=== PATIENT | female | born 1980 | race Caucasian/White ===

== ENCOUNTER 2016-07-06 05:40 | Day surgery (SDC) | payer BC ==
[~2016-07-06] VITALS: Ht 162.6 cm; Wt 63.4 kg
[2016-07-06] VITALS (12 sets, daily range): BP systolic 97–122; BP diastolic 58–73; PULSE 58–85; RESP 12–20; TEMP 96.9–98.6; O2SAT 99–100; Ht 162.6 cm; Wt 63.4 kg
[~2016-07-06 05:40] MED LIST: LORA10TA62 PO; MULT-933 PO; VITA1TAB21 PO
[2016-07-06 06:09] LABS: BASOPHILS % (AUTO) 0.1 % (0-2); EOSINOPHILS # (AUTO) 0.2 T/MM3 (0-0.5); EOSINOPHILS % (AUTO) 2.6 % (0-4); HCT - HEMATOCRIT 38.7 % (36-46); HGB - HEMOGLOBIN 12.8 GM/DL (12-16); IMMATURE GRANULOCYTE # (AUTO) 0.01 T/MM3 (0.00-0.03); IMMATURE GRANULOCYTE % (AUTO) 0.1 % (0.0-0.5); LYMPHOCYTES # (AUTO) 3.3 T/MM3 (1-4.8); MEAN CORPUSCULAR HGB 31.3 UUG (26-34); MEAN CORPUSCULAR HGB CONC(MCHC 33.1 GM/DL (31-37); MEAN CORPUSCULAR VOLUME 94.6 UM3 (80-100); MEAN PLATELET VOLUME 10.5 UM3 (9.4-12.4); MONOCYTES # (AUTO) 0.3 T/MM3 (0-0.8); MONOCYTES % (AUTO) 3.4 % (0-9.0); NEUTROPHILS #(AUTO)-ABSOLUTE 3.5 T/MM3 (1.8-7.7); NEUTROPHILS % (AUTO) 48.8 % (33-66); RED BLOOD COUNT 4.09 M/MM3 (4.00-5.20); WBC - WHITE BLOOD COUNT 7.3 T/MM3 (4.5-11.0)
[2016-07-06 06:19] LABS: BLOOD, URINE 2+ (NEGATIVE); COLOR,URINE YELLOW (YELLOW); LEUKOCYTE ESTERASE ,URINE NEGATIVE (NEGATIVE); NITRITE,URINE NEGATIVE (NEGATIVE); UROBILINOGEN,URINE 0.2 EU/DL (NORMAL)
[2016-07-06 06:28] LABS: BACTERIA,URINE 4+ (NEGATIVE); WBC,URINE NONE SEEN /HPF (0-5)
--- NOTE | 2016-07-06 06:59 | ANESPREOP ---
Anesthesia Record Date and Time DATE: 07/06/16 TIME: 06:56 Proposed Surgical Procedure LAP TUBAL Allergies: Coded Allergies: No Known Drug Allergies (Verified Allergy, Unknown, 07/06/16) Ht/Wt/BMI Height: 5 ' 4.00 " Weight: 63.400 kg BMI: 24.0 kg/m2 Vital Signs Date Time Temp Pulse Resp B/P Pulse Ox O2 Delivery O2 Flow Rate FiO2 07/06/16 06:12 98.6 82 14 116/70 99 Room Air Medications Inpatient Medications Current Medications Medications (Trade) Dose Ordered Sig/Ciarra Start Time Stop Time Status Last Admin Dose Admin Lactated Ringer's (Lactated Ringers) 1,000 ml @ 125 mls/hr Q8H 07/06/16 07:00 07/06/16 06:25 125 MLS/HR Loratadine (Claritin) 10 Mg Tablet, 1 TAB PO DAILY, (Reported) Last Taken: on 07/05/16 0800 Multivitamin (Multi-Day Vitamins) 1 Each Tablet , 1 TAB PO DAILY, (Reported) Last Taken: on 07/05/16 0800 Vitamin B Complex (Vitamin B Complex) 1 Each Tablet, 1 TAB PO DAILY, (Reported) Last Taken: on 07/05/16 0800 Currently on Beta Sindy: No Medical/Surgical History Anesthesia PMH: Denies: *Angina, *Diabetes, *Hypertension, *OK, Anesthesia Reactions (NO AIRWAY ISSUES), Arthritis, CHF, Cancer, Clotting Problems, Deep Vein Thrombosis, Glaucoma, Malignant Hyperthermia, Renal Disease, Rheumatic Fever, Sleep Apnea, Thyroid Disease Smoking Status: Never smoker Use Chewing Tobacco?: No Substance Use Type: does not use Alcohol Intake: none Last Drink: hours (ago) (8) HX of Last Menstrual Period: JUNE 2016 Past Surgical History Orthopedic Surgeries: Abdominal Surgeries: Genitourinary Surgeries: Cardiac Surgeries: Endocrine Surgeries: Reproductive Surgeries: Yes - Neurological Surgeries: Ear Surgeries: Nose Surgeries: Throat Surgeries: Other Surgeries: Anesthesia Adverse Reactions: FOUND none Family Hx of Anesthesia Advers: none Hx of Motion Sickness: No Pertinent Findings Laboratory Tests 07/06/16 05:54 Test 07/06/16 05:54 Human Chorionic Gonadotropin, Qual Negative (NEGATIVE) Physical Exam Respiratory: Lungs clear Cardiovascular: FOUND Regular rate, rhythm Airway Assessment Mallampati Score: II TMD: 3 Fingerbreadths Neck Extension: Good Overall Assessment: No Airway Concerns ASA: 1 Plan Anesthesia Plan: GETA Discussion Discussed risks/options/alternatives of anesthesia and questions answered. Patient consents. Nursing pain assessment noted. Attestation Statement Prior to the delivery of any anesthetic medication, I examined the patient, developed the plan, obtained the patient's consent and discussed the risk and benefits of the procedure with the patient/guardian. CLIFFORD RODRIGUEZ BOTANY TECHNICIAN Jul 06, 2016 06:59
[2016-07-06] MEDS ORDERED: LR 1,000 ML IV SCH (07:00)
[2016-07-06] MEDS ORDERED: LIDOCAINE 1% (10mg/ml) 2ml SDV INJ ONE (07:00)
[2016-07-06] MEDS ORDERED: ONDANSETRON 4mg/2ml INJECTION ONE ×2 (07:10→08:52)
[2016-07-06] MEDS ORDERED: LIDOCAINE 2% (20mg/ml) 5ml PF SDV ONE ×2 (07:10→08:52)
[2016-07-06] MEDS ORDERED: PROPOFOL 200mg 20 ML IV ONE (07:10)
[2016-07-06] MEDS ORDERED: DEXAMETHASONE 4mg/ml - 1ml INJECTION ONE ×2 (07:10→08:52)
[2016-07-06] MEDS ORDERED: BUPIVACAINE 0.25% (2.5mg/ml) INJ 30ml SDV ONE (07:11)
[2016-07-06] MEDS ORDERED: MIDAZOLAM 2mg/2ml INJECTION ONE ×2 (07:15→08:59)
[2016-07-06] MEDS ORDERED: FENTANYL 100mcg/2ml INJECTION ONE ×2 (07:15→08:59)
[2016-07-06] MEDS ORDERED: GLYCOPYRROLATE 0.4mg/2ml INJECTION ONE (07:49)
[2016-07-06] MEDS ORDERED: NEOSTIGMINE 10mg/10ml INJECTION ONE (07:49)
[2016-07-06] MEDS ORDERED: ROCURONIUM 50mg/5ml INJECTION IV ONE (07:49)
--- NOTE | 2016-07-06 08:27 | GYNOPNOTE1 ---
CHIEF MECHANICAL ENGINEER Postoperative Note Date of Operation: 07/06/16 Preoperative Diagnosis: Sterilization Postoperative Diagnosis: Same as Preoperative Procedure: Tubal Ligation Surgeon: Micaela Pierre MD Anesthesia Provider: Todd Hook CRNA Anesthesia Type: general Comments minimal MICAELA PIERRE MD Jul 06, 2016 08:26
[2016-07-06] MEDS ORDERED: HYDR-4246 PO (08:29)
[2016-07-06] MEDS ORDERED: METOCLOPRAMIDE 10mg/2ml INJECTION IV PRN (08:30)
[2016-07-06] MEDS ORDERED: FENTANYL 100mcg/2ml INJECTION IV PRN (08:30)
[2016-07-06] MEDS ORDERED: HYDROMORPHONE 2mg/ml INJECTION IV PRN (08:30)
[2016-07-06] MEDS ORDERED: HYDROCODONE/APAP 5 mg/325 mg TABLET PO PRN (08:30)
[2016-07-06] MEDS ORDERED: MORPHINE SULFATE 4 MG SYRINGE IV PRN (08:30)
[2016-07-06] MEDS ORDERED: ONDANSETRON 4mg/2ml INJECTION IV PRN (08:30)
[2016-07-06] MEDS ORDERED: PROPOFOL 500mg 0 ML IV ONE (08:52)
--- NOTE | 2016-07-06 09:50 | ANESPO ---
Post-Op Note Date 07/06/16 Time: 09:00 Status Pt Participated in Evaluation: Pt participated in person Vital Signs Date Time Temp Pulse Resp B/P Pulse Ox O2 Delivery O2 Flow Rate FiO2 07/06/16 09:20 85 18 115/72 99 Room Air 07/06/16 09:02 96.9 Respiratory Function: Airway patent Cardiovascular Function: Regular pulse Mental Status: Alert/oriented Pain Level Intensity: 2 Hydration: Taking po fluids Complications during Recovery None apparent Follow-Up Instructions Instructions Per Surgeon CLIFFORD RODRIGUEZ CRNA Jul 06, 2016 09:50
--- NOTE | 2016-07-06 10:25 | OPNOTEF ---
DATE OF PROCEDURE 07/06/2016 PREOPERATIVE DIAGNOSIS Sterilization. POSTOPERATIVE DIAGNOSIS Sterilization. PROCEDURE Laparoscopic bilateral tubal fulguration. SURGEON Micaela Paredes MD ANESTHESIA General endotracheal - Todd Hook CRNA EBL Minimal OPERATIVE FINDINGS Normal uterus, tubes and ovaries. Normal appendix. Normal liver and gallbladder. DESCRIPTION OF PROCEDURE Ms. Walker was brought to the OR and placed on the OR table in a comfortable supine position. She was given general anesthesia and intubated without difficulty. She was then placed in the standard lithotomy position and I performed a bimanual exam. The abdomen, perineum and vagina were prepped and draped in the usual sterile fashion. The cervix was visualized with a freeway speculum. It was then grasped with an Allis clamp. The Frontstart uterine manipulator was inserted and the Allis and retractor removed. We then re-gloved. The infraumbilical region was infiltrated with dilute Marcaine. A 5 mm incision was made with a sharp knife. The abdomen was tented up and the Veress needle inserted through this. The abdomen was then insufflated with CO2 until pressures of 12-15 mmHg were achieved. We then removed our Veress needle. Again tenting up the abdomen, we inserted a 5-mm trocar through the incision. We left the sheath in place and placed a 0-degree laparoscope through this. The abdomen and pelvis were explored with findings as described above. We then placed the patient in Trendelenburg and gently swept the bowel clear of the pelvis. We transilluminated the area in the suprapubic region and then infiltrated with dilute Marcaine and made a 5 mm incision. Under direct visualization, a 5 mm trocar was placed through this incision. We then further examined the pelvis. The right fallopian tube was visualized to its fimbria in its entirety. It was then grasped at the midpoint with [email or web address] bipolar cautery paddles. It was cauterized all the way through until tissue was thoroughly desiccated. I then removed 2 cm proximal and cauterized that area completely, then removed 2 cm distal to the initial cauterization and cauterized that area completely. I then took sharp scissors and cut through each area of cauterization. The sites were carefully examined and were found to be hemostatic at all three sites. We then repeated the procedure in the exact same fashion on the left fallopian tube. After inspecting once again for hemostasis, we took Ms. Walker out of Trendelenburg and removed the lower port. We allowed the CO2 to escape completely, then removed the camera and its port. The incisions were reapproximated with subcuticular style 3-0 undyed Vicryl and then the wounds were dressed with sterile dressings. Counts were correct postoperatively x 2. I then removed the uterine manipulator. It was bleeding at the site of the trocar. I held pressure for several minutes and then this resolved. Hemostasis was good at this point. The retractor was removed once again after reinserting it to reevaluate the cervix. Ms. Walker was then returned to the supine position. She was brought out from under anesthesia, extubated and transferred to recovery in stable condition. LINDA
== END 2016-07-06 09:50 | disposition home or self-care (01) ==
LOC: SCU 05:40
PROVIDERS: ATTEND Obstetrics & Gynecology
DX: Z30.2 Encounter for sterilization (principal)
CPT/HCPCS: 36415; 58670; 81001; 84703; 85025; J0330; J1100; J1170; J2250; J2405; J2704; J2710; J3010; J7120; S0020